=== PATIENT | female | born 2005 | race Caucasian/White ===

== ENCOUNTER 2023-04-27 20:53 | Emergency (ER) | payer SELFPAY ==
[~2023-04-27] VITALS: Ht 170.2 cm; Wt 74.8 kg
[2023-04-27 22:00] LABS: BASOPHILS # (AUTO) 0.1 K/UL (0.0-0.2); BASOPHILS % (AUTO) 1.9 % (0.0-2.0); EOSINOPHILS # (AUTO) 0.3 K/uL (0.0-0.7); EOSINOPHILS % (AUTO) 4.2 % (0.0-7.0); HEMATOCRIT 33.7 % (31.2-41.9); HEMOGLOBIN 11.4 g/dL (10.9-14.3); LYMPHOCYTES # (AUTO) 1.9 K/uL (0.8-4.8); LYMPHOCYTES % (AUTO) 29.3 % (20.5-74.5); MEAN CORPUSCULAR HEMOGLOBIN 29.1 uug (24.7-32.8); MEAN CORPUSCULAR HGB CONC 34 g/dL (32.3-35.6); MEAN CORPUSCULAR VOLUME 85.9 fL (75.5-95.3); MONOCYTES # (AUTO) 0.7 K/uL (0.1-1.30); NEUTROPHILS # (AUTO) 3.6 K/uL (1.8-8.9); NEUTROPHILS % (AUTO) 54.6 % (31.5-64.5); PLATELET COUNT (AUTO) 313 K/uL (179-408); RED BLOOD CELL COUNT(AUTO) 3.93 MIL/uL (3.63-4.92); RED CELL DISTRIBUTION WIDTH 15.9 % (12.3-17.7); WHITE BLOOD COUNT (AUTO) 6.6 K/uL (3.8-11.8)
[2023-04-27 22:04] LABS: CALCIUM 8.9 mg/dL (8.5-10.1); CARBON DIOXIDE 26 mmol/L (21-32); CHLORIDE 104 mmol/L (98-107); CREATININE 0.8 mg/dL (0.6-1.3); GLUCOSE 98 mg/dL (74-106); POTASSIUM 3.5 mmol/L (3.5-5.1); SODIUM SERUM 137 mmol/L (136-145); UREA NITROGEN, BLOOD 9 mg/dL (7-18)
[2023-04-27 22:06] LABS: DIFFERENTIAL COMMENT 1
[2023-04-27 22:10] LABS: ALANINE AMINOTRANSFERASE 19 U/L (14-59); ALBUMIN 3.4 g/dL (3.4-5.0); ALKALINE PHOSPHATASE 74 U/L (50-136); ASPARTATE AMINOTRANSFERASE 15 U/L (15-37); BILIRUBIN,TOTAL 0.2 mg/dL (0.2-1.0); TOTAL PROTEIN, SERUM 6.7 g/dL (6.4-8.2)
[2023-04-27] MEDS ORDERED: HYDROMORPHONE 1 MG/1 ML DISP.SYRIN IM ONE (22:15)
[2023-04-27 22:16] LABS: PREGNANCY TEST SERUM QUAN 852 miul/L (0-6)
[2023-04-27] MEDS ORDERED: HYDROMORPHONE 1 MG/1 ML DISP.SYRIN ONE (22:16)
[2023-04-27 22:25] LABS: BILIRUBIN,DIRECT < 0.1 mg/dL (0.0-0.2)
[2023-04-27] MEDS ORDERED: HYDR-3980 PO (23:00)
[2023-04-28 00:06] VITALS: BP 117/68; TEMP 98.5; O2SAT 100
== END 2023-04-28 00:07 | disposition home or self-care (01) ==
LOC: ER 20:55
DX: O20.0 Threatened abortion (principal); R10.2 Pelvic and perineal pain; Z79.899 Other long term (current) drug therapy
CPT/HCPCS: 99285; 76856; 80076; 80048; 85025; 85730; 86850; 86900; 86901; 84702; 36415; 96372; J1170; A4606; A4663